=== PATIENT | male | born 1995 | race Caucasian/White ===

== ENCOUNTER 2019-12-21 15:27 | Emergency (ER) | payer BC ==
[~2019-12-21] VITALS: Ht 170.2 cm; Wt 69.9 kg
== END 2019-12-21 18:44 | disposition home or self-care (01) ==
LOC: ER 15:27
DX: B34.9 Viral infection, unspecified (principal); D69.49 Other primary thrombocytopenia; Z03.818 Encounter for observation for suspected exposure to other biological agents ruled out

== ENCOUNTER 2019-12-22 18:44 | Inpatient (IN) | payer BC ==
[~2019-12-22] VITALS: Ht 180.3 cm; Wt 68.0 kg
--- NOTE | 2019-12-22 18:59 | NUR ---
PTE REFIERE DOLOR EN EL CUERPO REFIERE PLAQUETAS BAJA SE CHACHO S/V YSE UBIAC EN AREA DE OBSERVACION
--- NOTE | 2019-12-22 19:24 | NUR ---
PACIENTE ALERTA Y ORIENTADO X3 SE ORIENTA SOBRE TX Y PROCEDIMIENTO A REALIZAR Y REFIRIERE ENTENDER. SE REALIZA MUESTRAS DE LABORATORIO BAJO MEDIDAS ASEPTICAS. PACIENTE SE ALPHOSNE MEDICAMENTO ORDENADO POR . SE MANTIENE BAJO OBSERVACION POR CAMBIOS SIGNIFICATIVOS.
--- NOTE | 2019-12-22 23:24 | NUR ---
SE RECIBE PTE ALERTA Y ORIENTADO X3 EN DEVON CON BARANDAS ELEVADAS. SE RECIBE PTE CANALIZADO AREA GERARDO DE EDEMA Y DE ENROJECIMIENTO. PTE EN ESPERA DE ALPHONSE DE MUESTRAS A LAS [address] ORDEN MEDICA.
--- NOTE | 2019-12-23 07:27 | NUR ---
SE RECIBE PTE MASCULINO DE 24 YRS ALERTA CONCIENTE Y TRANQUILO EN DEVON CON BARANDAS ELEVADA. PTE CONSULTADO CON EL DR,CANDE AYON QUIEN SE ENCUENTRA NOTIFICADO. SE OBSERVA PTE CON IVF'S PATENTE Y GERARDO DE EDEDMA. SE MANTIENEN DESCANSANDO Y GERARDO DE DOLOR. SE OBSERVA POR CAMBIOS.
== END 2019-12-25 15:14 | disposition home or self-care (01) | DRG 866 ==
LOC: ER 18:44 → SEC-K 12-23 12:45 → MEDI 12-23 12:45 → MEDJ 12-23 14:33 → MEDI 12-25 15:14
PROVIDERS: ADMIT Internal Medicine; ATTEND Internal Medicine
PROC: BW40ZZZ Ultrasonography of Abdomen (ICD-10-PCS; principal; 2019-12-23)
DX: A90 Dengue fever [classical dengue] (principal); D69.59 Other secondary thrombocytopenia; Z20.828 Contact with and (suspected) exposure to other viral communicable diseases

== ENCOUNTER → 2019-12-25 | Emergency (ER) | payer BC | END | disposition left against medical advice (07) | LOC: ER 23:49 | DX: Z53.20 Procedure and treatment not carried out because of patient's decision for unspecified reasons (principal) ==